=== PATIENT | female | born 1935 | race Caucasian/White ===

== ENCOUNTER 2019-09-19 20:48 | Emergency (ER) | payer MEDICARE, OTHER ==
[~2019-09-19] VITALS: Ht 157.5 cm; Wt 59.9 kg
--- NOTE | 2019-09-19 20:48 | NUR ---
[facility]IB EMS C/O ALTERED MENTAL STATUS, LOW BP PER B&C STAFF TO EMS, PER EMS V/S WNL, PT ABLE TO FOLLW SIMPLE COMMANDS., PT AWAKE, ALERT, -SOB, NAD NOTED, VSS ,PENDING MD WATTS
[2019-09-19 21:29] LABS: BASOPHILS # (AUTO) 0.1 /CMM (0.0-0.2); BASOPHILS % (AUTO) 0.8 % (0.0-2.0); EOSINOPHILS % (AUTO) 0.5 % (0.0-6.0); HEMATOCRIT 36 % (33-45); HEMOGLOBIN 11.3 g/dL (11.5-14.8); LYMPHOCYTES # (AUTO) 1.3 /CMM (0.8-4.8); LYMPHOCYTES % (AUTO) 9.5 % (20.0-44.0); MEAN CORPUSCULAR HGB CONC 32 g/dl (31.0-36.0); MEAN CORPUSCULAR VOLUME 87 fL (82-100); MONOCYTES # (AUTO) 0.4 /CMM (0.1-1.30); MONOCYTES % (AUTO) 2.6 % (2.0-12.0); NEUTROPHILS # (AUTO) 11.7 /CMM (1.8-8.9); NEUTROPHILS % (AUTO) 86.6 % (43.0-81.0); PLATELET COUNT (AUTO) 376 /CMM (150-450); RED BLOOD CELL COUNT(AUTO) 4.11 MIL/uL (4.0-5.2); WHITE BLOOD COUNT (AUTO) 13.6 K/uL (4.3-11.0)
[2019-09-19 21:45] LABS: CREATININE 1.3 mg/dL (0.6-1.3)
[2019-09-19 22:56] LABS: APPEARANCE,URINE Clear (CLEAR); BILIRUBIN,URINE SMALL (NEGATIVE); BLOOD, URINE Moderate Ery/uL (NEGATIVE); COLOR,URINE Yellow (YELLOW); KETONES,URINE Negative (NEGATIVE); LEUKOCYTE ESTERASE ,URINE Large (NEGATIVE); NITRITE, URINE Negative (NEGATIVE); PROTEIN,URINE 30 mg/dl (NEGATIVE); UGLUCOSE Negative (NEGATIVE); UROBILINOGEN,URINE 0.2 EU/dL (0.2)
--- NOTE | 2019-09-19 23:37 | NUR ---
[facility] [id number] ETA #[id number]
--- NOTE | 2019-09-19 23:47 | NUR ---
SPOKE TO WHITNEY AT [facility] AWARE OF PT'S ETA. SON AT [facility] MADE AWARE
[2019-09-19 23:49] LABS: BACTERIA,URINE Few /HPF (None Seen); SQUAMOUS EPITHELIAL CELL,UR Few /HPF (None Seen); WBC,URINE 21-50 /HPF (0-3)
[2019-09-20] MEDS ORDERED: NITROFURANTOIN/NITROFURAN MAC 100 MG CAPSULE ONE (00:13)
[2019-09-20] MEDS ORDERED: LIDOCAINE /MPF 1% VIAL 5 ML VIAL ONE (00:13)
[2019-09-20] MEDS ORDERED: CEFTRIAXONE 1 G VIAL ONE (00:13)
[2019-09-20] MEDS ORDERED: NITROFURANTOIN/NITROFURAN MAC 100 MG CAPSULE PO ONE (00:30)
[2019-09-20] MEDS ORDERED: CEFTRIAXONE 1 G VIAL IM ONE (00:30)
--- NOTE | 2019-09-20 01:21 | NUR ---
PT LEFT IN STABLE CONDTION, PT LEFT VIA PRIVATE AMBULANCE, -SOB, NAD NOTED, REPORT GIVEN TO STAFF.
[2019-09-20 01:23] VITALS: BP 123/75
== END 2019-09-20 01:23 | disposition home or self-care (01) ==
LOC: ER 20:50
DX: N39.0 Urinary tract infection, site not specified (principal); I10 Essential (primary) hypertension; J45.909 Unspecified asthma, uncomplicated; K21.9 Gastro-esophageal reflux disease without esophagitis; R41.82 Altered mental status, unspecified; Z88.0 Allergy status to penicillin; Z88.6 Allergy status to analgesic agent
CPT/HCPCS: 36415; 70450; 80048; 81001; 85025; 87086; 96372; 99284; J0696; J3490; 81000-TC